=== PATIENT | female | born 1965 | race Caucasian/White ===

== ENCOUNTER 2017-04-22 09:24 | Day surgery (SDC) | payer OTHER ==
[2017-04-21 12:41] VITALS: BMI 34.1
[2017-04-22] MEDS ORDERED: ROPIVACAINE HCL 0.5% 30ML VIAL ONE (09:57)
[2017-04-22] MEDS ORDERED: DEXAMETHASONE SOD PHOSPHATE/PF 10 MG/ML SDV ONE (09:57)
[2017-04-22] MEDS ORDERED: MIDAZOLAM HCL 2 MG/2 ML SINGLE DOSE VIAL ONE (09:57)
[2017-04-22] MEDS ORDERED: PROPOFOL 20 ML ONE ×2 (11:24)
--- NOTE | 2017-04-22 14:08 | SURG ---
Surgery Mechanical Assembler Note Mechanical Assembler: Amanda Schwarz PA-C Date of Service: 04/22/17 Diagnosis: left ankle trimalleolar fracture Procedure: Open reduction internal fixation of left ankle fracture I was present for the entirety of the operative procedure. For further detail, please refer to operative report. Visit type - Case Type Case Type: Scheduled Admission - Emergency Emergency Visit: No - New patient This patient is new to me today: Yes Date on this admission: 04/22/17
[2017-04-22] MEDS ORDERED: PROMETHAZINE HCL 25 MG/1 ML VIAL ONE (14:10)
--- NOTE | 2017-04-22 14:11 | OP ---
Operative Note - Note: Operative Date: 04/22/17 Pre-Operative Diagnosis: left ankle fracture Operation: Open reduction internal fixation of left ankle fracture Post-Operative Diagnosis: Same as Pre-op Surgeon: Troy Beckett [employer] Barge Loader: Amanda Schwarz Anesthesia: Local (block with LMA) Estimated Blood Loss (mls): 100
--- NOTE | 2017-04-22 14:20 | OP ---
DATE OF OPERATION: 04/22/2017 PREOPERATIVE DIAGNOSIS: Left trimalleolar ankle fracture. POSTOPERATIVE DIAGNOSIS: Left trimalleolar ankle fracture. PROCEDURE: Left ankle open reduction internal fixation medial and lateral malleoli. SURGEON: Troy German MD TRADE ECONOMIST: GODWIN Burdick, whose skilled full assistance was necessary for the safe and timely performance of this procedure. Ms. Schwarz was able to assist in limb positioning, fracture reduction, fracture fixation, and the manipulation of orthopaedic instruments during the procedure. ANESTHESIA: General plus regional. POSTOPERATIVE CONDITION: Stable. COMPLICATIONS: None. IMPLANTS: Arthrex distal fibula plate along with 4.0 medial cannulated screws x2. TOURNIQUET TIME: One hour. INDICATIONS: This is a pleasant 51-year-old woman who suffered a trimalleolar ankle fracture. She was found to have significant displacement of the medial fragment and mild displacement of the lateral fragment. Treatment options including nonoperative versus operative management were discussed. Operative risks were reviewed in detail including bleeding, infection, neurovascular injury, need for further surgery, postoperative pain and stiffness, nonunion, malunion, hardware failure or cut out. We discussed medical risks such as heart attack, stroke, DVT, PE, and . I addressed all of the patient's questions. She voiced understanding and elected to proceed. DESCRIPTION OF PROCEDURE: The patient was brought to the operating room after administration of regional block in the preoperative holding area. The left lower extremity was then prepped and draped in the usual sterile fashion. A preoperative dose of antibiotics was given, and the usual time-out procedure was performed. The incision was now planned out over the distal fibula as well as the distal tibia. The wound was now exsanguinated. Tourniquet was inflated to 250 mmHg. An incision was now made over the distal fibula, full thickness more distally over the bone and more superficially proximally to avoid any injury to the superficial peroneal area. Blunt spreading was used then to expose the fracture site. A long spiral was noted. There was a large butterfly fragment anteriorly. There was moderate comminution present. After debriding the fracture of any loose debris and mobilizing the fracture fragments, fracture reduction clamps were used to obtain an anatomic reduction. The reduction was then help in place with 2-0 K-wires. Fluoroscopy was used to verify fracture reduction, and this was satisfactory. A plate was then chosen. Given the comminuted nature, it was felt that lag screw technique would not work, and therefore, a plate was applied. The plate was affixed distally using two 7 screws locking and proximally using 3.5-mm cortical screws. After securing the fracture in place, post fracture reduction and the hardware plates were examined both fluoroscopically and visually. Both fracture reduction and hardware plates were satisfactory. Attention was now turned medially. The incision was made through the skin to the subcutaneous tissue. Blunt spreading was used to expose the periosteum over the medial malleolus. The periosteum was then incised in line with its fibers exposing the fracture site. Again, the fracture site was debrided and then irrigated to remove any of this debris. A fracture reduction clamp was now applied reducing the fracture anatomically. Two K-wires from the 4.0 cannulated screw set were now placed parallel through the fracture to secure it. Both K-wire placement and fracture reduction was verified fluoroscopically and was satisfactory. The two wires were now overdrilled to the near cortex only. Two 45-mm 4.0 cannulated screws were now inserted and compressed across the fracture site. At this time, the entire construct was examined both visually and fluoroscopically. Both fracture reduction and hardware placement were satisfactory. It should be noted that the tourniquet was let down during the medial malleolar fixation as the tourniquet became more of a venous tourniquet and increased bleeding was noted. After removing the tourniquet, the bleeding stopped. At this time, an external rotation stress test was performed under live fluoroscopy, and no instability was noted. The wounds were now irrigated. The deep tissue was approximated using 0 Vicryl. Subcutaneous tissue was approximated using 2-0 Vicryl. The skin was closed using 3-0 nylon. Sterile dressings were placed. The patient was extubated and transferred to the recovery room in stable condition following placement of a short-leg cast. TROY GERMAN M.D. [id number]
[2017-04-22 17:16] VITALS: PULSE 74
[2017-04-22 17:20] VITALS: BP 135/81; TEMP 98
[2017-04-22] MEDS ORDERED: oxyCODONE HCL 5 MG TABLET PO PRN (17:28)
[2017-04-22] MEDS ORDERED: PROMETHAZINE HCL 25 MG/1 ML VIAL IVPUSH PRN (17:28)
== END 2017-04-22 16:15 | disposition home or self-care (01) ==
LOC: FASU 09:24
PROVIDERS: ATTEND Orthopaedic Surgery Sports Medicine
PROC: 0QSH04Z Reposition Left Tibia with Internal Fixation Device, Open Approach (ICD-10-PCS; 2017-04-22)
PROC: 0QSK04Z Reposition Left Fibula with Internal Fixation Device, Open Approach (ICD-10-PCS; principal; 2017-04-22 11:27)
DX: S82.852A Displaced trimalleolar fracture of left lower leg, initial encounter for closed fracture (principal); X58.XXXA Exposure to other specified factors, initial encounter; Y93.9 Activity, unspecified; Y92.9 Unspecified place or not applicable
CPT/HCPCS: 73610-TC-LT; 76001-TC; 84703; 94760